=== PATIENT | female | born 1950 | race Caucasian/White ===

== ENCOUNTER → 2018-10-28 | Outpatient (CLI) | payer MEDICARE, OTHER | END | disposition home or self-care (01) | LOC: RAH 12:53 | PROVIDERS: ATTEND Family Medicine | DX: N60.01 Solitary cyst of right breast (principal); N60.02 Solitary cyst of left breast; Z80.3 Family history of malignant neoplasm of breast | CPT/HCPCS: 76641; 77066 ==

== ENCOUNTER → 2019-08-03 | Outpatient (CLI) | payer OTHER ==
[~2019-08-03] MED LIST: ADV250 IH; ASPI81TA40 PO; ATOR20TA PO; MAGN250T10 PO; METF-444 PO; METO100T7 PO; PANT40TA PO; POTASSIUM PO; SERT50TA12 PO; TELM80TA2 PO; TERB250T51 PO; VIT-12 PO
== END | disposition home or self-care (01) ==
LOC: OIH 13:06
PROVIDERS: ATTEND Internal Medicine Cardiovascular Disease
DX: Z13.6 Encounter for screening for cardiovascular disorders (principal)
CPT/HCPCS: 75571

== ENCOUNTER → 2019-08-05 | Outpatient (CLI) | payer MEDICARE, OTHER | END | disposition home or self-care (01) | LOC: SHCH 11:02 | PROVIDERS: ATTEND Internal Medicine Cardiovascular Disease | DX: I11.9 Hypertensive heart disease without heart failure (principal); I08.0 Rheumatic disorders of both mitral and aortic valves | CPT/HCPCS: 93306 ==

== ENCOUNTER 2019-08-27 08:28 | Day surgery (SDC) | payer MEDICARE ==
[2019-08-25 15:59] VITALS: BP 208/83
[2019-08-25 16:02] LABS: BASOPHILS % (AUTO) 0.4 % (0.0-5.0); EOSINOPHILS % (AUTO) 3.6 % (0.0-8.0); HEMATOCRIT 32.6 % (36-48); LYMPHOCYTES % (AUTO) 25.7 % (21.0-51.0); MEAN CORPUSCULAR HEMOGLOBIN 24.3 pg (27.0-33.0); MEAN CORPUSCULAR HGB CONC 31.7 g/dL (32.0-36.0); MEAN CORPUSCULAR VOLUME 76.6 fL (79-99); MONOCYTES % (AUTO) 8.8 % (3.0-13.0); NEUTROPHILS % (AUTO) 61.5 % (40.0-77.0); PLATELET COUNT (AUTO) 343 K/uL (130-400); RED BLOOD CELL COUNT(AUTO) 4.25 MIL/uL (4.00-5.50); RED CELL DISTRIBUTION WIDTH 17.5 % (11.0-15.5); WHITE BLOOD COUNT (AUTO) 8.9 K/uL (4.8-10.8)
[2019-08-25 16:04] LABS: APPEARANCE,URINE Clear (CLEAR); BILIRUBIN,URINE Negative (NEGATIVE); COLOR,URINE Yellow (YELLOW); GLUCOSE, URINE (UA) Negative (NEGATIVE); KETONES,URINE Negative (NEGATIVE); LEUKOCYTE ESTERASE ,URINE Negative (NEGATIVE); NITRATE,URINE Negative (NEGATIVE); OCCULT BLOOD,URINE Negative (NEGATIVE); PROTEIN,URINE Negative (NEGATIVE); UROBILINOGEN,URINE 0.2 mg/dL (0.2-1.0)
[2019-08-25 16:15] LABS: CREATININE 0.8 mg/dL (0.5-1.5); POTASSIUM 4.5 mmol/L (3.5-5.1)
[2019-08-25 16:17] LABS: INR 0.95 (0.85-1.15); PARTIAL THROMBOPLASTIN TIME 25.7 SEC (26.3-35.5)
[2019-08-25 16:43] VITALS: BP 160/80
--- NOTE | 2019-08-26 11:39 | NUR ---
labs abnormal h&h reported to [facility],no further orders given. ok to proceed with [facility]
[~2019-08-27] VITALS: Ht 160 cm; Wt 127.2 kg
[2019-08-27] VITALS (9 sets, daily range): BP systolic 133–154; BP diastolic 53–68
[~2019-08-27 08:28] MED LIST changes: +SODIUM CHLORIDE 0.9% 1000ML 1,000 ML IV SCH
--- NOTE | 2019-08-27 11:50 | NUR ---
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 family at bedside
[2019-08-27] MEDS ORDERED: MIDAZOLAM HCL 1 MG/ML 2ML VIAL ONE ×2 (12:01→12:43)
[2019-08-27] MEDS ORDERED: MEPERIDINE-PF 25 MG/ML SYG ONE ×2 (12:01→12:43)
[2019-08-27] MEDS ORDERED: IOHEXOL 350 MG/ML 100ML INFUS..BTL IV ONE (12:01)
[2019-08-27] MEDS ORDERED: NITROGLYCERIN 5 MG/ML 10 ML VIAL IV ONE (12:01)
[2019-08-27] MEDS ORDERED: VERAPAMIL HCL 2.5 MG/ML VIAL ONE (12:01)
[2019-08-27] MEDS ORDERED: IOHEXOL-350 50ML VIAL IV ONE (12:01)
[2019-08-27] MEDS ORDERED: HEPARIN SODIUM 1000UNIT/ML 10ML VIAL ONE (12:01)
[2019-08-27] MEDS ORDERED: LIDOCAINE HCL 2% 20ML ONE (12:02)
[2019-08-27] MEDS ORDERED: SODIUM BICARB 50MEQ 50ML VIAL ONE (12:05)
[2019-08-27] MEDS ORDERED: SODIUM CHLORIDE 0.9% 1000ML 1,000 ML IV SCH (13:18)
--- NOTE | 2019-08-27 13:40 | NUR ---
POST RECEIVED PT FROM [facility], S/P [facility] , RIGHT RADIAL T BAND IN PLACE WITH 18ML OF AIR PER REPORT. NO BLEEDING OR HEMATOMA TO SITE, VS STABLE. PLAN OF CARE DISCUSS WITH PT/ SPOUSE. CALL LIGHT WITHIN REACH
--- NOTE | 2019-08-27 14:05 | NUR ---
TBAND 18 ML TOTAL - 2ML OF AIR REMOVED FORM RIGHT RADIAL TBAND. NO BLEEDING NOTED PT TAMANNA WELL. 16 ML REMAIN
--- NOTE | 2019-08-27 14:25 | NUR ---
TBAND 16 ML TOTAL - 2ML OF AIR REMOVED FROM RIGHT RADIAL T BAND, NO BLEEDING OR HEMATOMA NOTED , PT TAMANNA WELL. 14 ML OF AIR REMAIN
--- NOTE | 2019-08-27 14:40 | NUR ---
TBAND 14 ML TOTAL - 2ML OF AIR REMOVED TO RIGHT RADIAL T BAND, , NO BLEEDING OR HEMATOMA TO SITE. PT TAMANNA WELL. 12 ML REMAIN
--- NOTE | 2019-08-27 15:10 | NUR ---
TBAND 12ML TOTAL , REMOVED 2 ML OF AIR FORM T BAND TO RIGHT RADIAL, NO BLEEDING OR HEMATOMA TO SITE. 10 ML AIR REMAIN,
--- NOTE | 2019-08-27 15:30 | NUR ---
TBAND 8 ML TOTAL , REMOVED 2ML OF AIR TO RIGHT TBAND 6 ML REMAINED Addendum: 08/27/19 at 1639 by ОЛЕГ CHRISTIE RN T BAND 10ML , REMOVED 2 ML OF AIR FROM T BAND, 8 ML REMAIN
--- NOTE | 2019-08-27 15:45 | NUR ---
TBAND TOTAL 8ML , REMOVED 2 ML TO TBAND RIGHT WRIST , REMAIN 6 ML,NO BLEEDING OR HEMATOMA TO SITE.
--- NOTE | 2019-08-27 16:00 | NUR ---
TBAND 6 ML, REMOVE 2 ML OF AIR FROM T BAND, NO BLEEDING OR HEMATOMA , 4 ML REMAIN
--- NOTE | 2019-08-27 16:15 | NUR ---
T BAND TOTAL 4 ML, REMOVE 2 ML OF AIR FROM T BAND, NO BLEEDING NOTED. 2 ML REMAIN
--- NOTE | 2019-08-27 16:30 | NUR ---
TBAND TOTAL 2ML , REMOVE 2 ML OF AIR FROM T BAND, ALL AIR REMOVED,NO BLEEDING OR HEMATOMA TO RIGHT RADIAL PUNTURE SITE. PT TAMANNA WELL. T BAND REMOVED AFTER AND STERILE DRESSING APPLIED.
--- NOTE | 2019-08-27 16:50 | NUR ---
DC PT DC HOME VIA WC,NO DISTRESS NOTED. PT DENIED ANY PAIN OR DISCOMFORTS. PT ACCOMPANIED BY SPOUSE, RIGHT WRIST DRESSING DRY AND INTACT, NO BLEEDING OR HEMATOMA NOTED. DC INSTRUCTIONS REINFORCED AGAIN TO CONTINUE HOME MEDS , TO HOLD METFORMIN FOR 1 DAY POST PROCEDURE. AND CONTINUE REST OF HOME MEDS, TO F/ U WITH DR. Nitin RAMON
== END 2019-08-27 16:50 | disposition home or self-care (01) ==
LOC: DAH 08:28
PROVIDERS: ATTEND Internal Medicine Cardiovascular Disease
DX: R93.1 Abnormal findings on diagnostic imaging of heart and coronary circulation (principal); I25.118 Atherosclerotic heart disease of native coronary artery with other forms of angina pectoris; I10 Essential (primary) hypertension; E78.5 Hyperlipidemia, unspecified; E11.9 Type 2 diabetes mellitus without complications; J45.909 Unspecified asthma, uncomplicated; G43.909 Migraine, unspecified, not intractable, without status migrainosus; Z79.84 Long term (current) use of oral hypoglycemic drugs; Z91.048 Other nonmedicinal substance allergy status; Z79.899 Other long term (current) drug therapy; Z79.82 Long term (current) use of aspirin; Z87.891 Personal history of nicotine dependence; Z72.89 Other problems related to lifestyle; Z98.890 Other specified postprocedural states; Z90.710 Acquired absence of both cervix and uterus; Z79.01 Long term (current) use of anticoagulants
CPT/HCPCS: 36415; 71045; 80048; 81003; 82948 ×2; 85025; 85610; 85730; 93005; 93458; A4215; A4216; A4221; A4222; A4223 ×3; A4606; A4663; C1769; C1894; J1644 ×2; J2175 ×2; J2250 ×2; J3490 ×4; J7030; Q9965; Q9967 ×2; 99156; 99157

== ENCOUNTER → 2020-05-10 | Outpatient (CLI) | payer MEDICARE ==
[~2020-05-10] MED LIST changes: -SODIUM CHLORIDE 0.9% 1000ML 1,000 ML IV SCH
== END | disposition home or self-care (01) ==
LOC: RAH 08:52
PROVIDERS: ATTEND Family Medicine
DX: N63.20 Unspecified lump in the left breast, unspecified quadrant (principal); R92.1 Mammographic calcification found on diagnostic imaging of breast; Z85.3 Personal history of malignant neoplasm of breast; N60.09 Solitary cyst of unspecified breast
CPT/HCPCS: 77066

== ENCOUNTER → 2022-11-16 | Outpatient (CLI) | payer MEDICARE ==
[~2022-11-16] MED LIST changes: +SERT-439 PO; -SERT50TA12 PO; -TERB250T51 PO; +TERB250T89 PO
== END | disposition home or self-care (01) ==
LOC: RAH 09:57
PROVIDERS: ATTEND Family Medicine
DX: R92.8 Other abnormal and inconclusive findings on diagnostic imaging of breast (principal); N60.29 Fibroadenosis of unspecified breast
CPT/HCPCS: 77066

== ENCOUNTER → 2023-03-13 | Outpatient (CLI) | payer MEDICARE | END | disposition home or self-care (01) | LOC: RAH 12:05 | PROVIDERS: ATTEND Family Medicine | DX: R05.3 Chronic cough (principal); R93.89 Abnormal findings on diagnostic imaging of other specified body structures; M47.815 Spondylosis without myelopathy or radiculopathy, thoracolumbar region | CPT/HCPCS: 71250 ==

== ENCOUNTER 2023-07-26 06:00 | Day surgery (SDC) | payer MEDICARE ==
[2023-07-24 10:26] VITALS: BP 149/75; PULSE 70; RESP 16
[2023-07-26] VITALS (18 sets, daily range): BP systolic 129–181; BP diastolic 61–99; PULSE 62–80; RESP 12–20
[~2023-07-26] VITALS: Ht 157.5 cm; Wt 120.5 kg
[~2023-07-26 06:00] MED LIST changes: +ACET-3573 PO; -ADV250 IH; +BIOT5000 PO; +FLUT1BLS3 IH; +HYDR12.54 PO; -MAGN250T10 PO; +MAGN400C PO; -TERB250T89 PO; +VITA0.4T20 PO; +[UNRECOGNIZED DRUG - REMARK] PO
[2023-07-26] MEDS ORDERED: FENTANYL CITRATE PF 50 MCG/1 ML 5ML AMP IV ONE ×2 (06:38→06:54)
[2023-07-26] MEDS ORDERED: CEFAZOLIN SODIUM 1 GM VIAL ONE (06:39)
[2023-07-26] MEDS ORDERED: CEFAZOLIN SODIUM 2 GM VIAL ONE (06:40)
[2023-07-26] MEDS ORDERED: 0.9%NACL 1000ML 1,000 ML IV ONE (06:40)
[2023-07-26] MEDS ORDERED: SUCCINYLCHOLINE CHLORIDE 20 MG/ML 10 ML VIAL ONE (07:08)
[2023-07-26] MEDS ORDERED: LIDOCAINE PF 100MG/5ML (2%) SYRINGE 5ML ONE (07:08)
[2023-07-26] MEDS ORDERED: DEXAMETHASONE SOD PHOSPHATE 10MG/ML 1ML VIAL ONE (07:09)
[2023-07-26] MEDS ORDERED: GLYCOPYRROLATE 1 MG/5 ML SYRINGE ONE (07:09)
[2023-07-26] MEDS ORDERED: PROPOFOL 10 MG/ML 20ML VIAL IV ONE (07:09)
[2023-07-26] MEDS ORDERED: NEOSTIGMINE 5MG/5ML SYR IV ONE (07:10)
[2023-07-26] MEDS ORDERED: ONDANSETRON 4MG INJ ONE (07:10)
[2023-07-26] MEDS ORDERED: ROCURONIUM 10MG/1ML SYR 10 MG/ML ML ONE (07:10)
[2023-07-26] MEDS ORDERED: LIDOCAINE HCL-MPF 0.5% 50ML VIAL IJ ONE (07:13)
[2023-07-26] MEDS ORDERED: KETAMINE 50MG/ML SYRINGE 50 MG/ML DISP.SYRIN ONE (07:14)
[2023-07-26] MEDS ORDERED: MIDAZOLAM HCL 1 MG/ML 5ML VIAL ONE (07:14)
[2023-07-26] MEDS ORDERED: DEXMEDETOMIDINE HCL 200 MCG/2 ML VIAL IV ONE (07:14)
[2023-07-26] MEDS ORDERED: LIDOCAINE HCL-MPF 2% 5ML VIAL ONE (07:14)
[2023-07-26] MEDS ORDERED: PROPOFOL 1000 MG/100 ML 100 ML IV ONE (07:15)
[2023-07-26] MEDS ORDERED: FENTANYL CITRATE PF 50 MCG/1 ML 2ML VIAL ONE (07:34)
[2023-07-26] MEDS ORDERED: CEFAZOLIN SODIUM 2 GM VIAL IVPB ONE (07:48)
[2023-07-26] MEDS ORDERED: BUPIVACAINE/PF 0.5% 30ML VIAL IV ONE (07:52)
[2023-07-26] MEDS ORDERED: BUPIVACAINE/PF 0.5% 30ML VIAL ONE (08:00)
[2023-07-26] MEDS ORDERED: SUGAMMADEX SODIUM 200 MG/2 ML VIAL IV ONE (08:10)
[2023-07-26] MEDS ORDERED: ACET-2079 PO (09:15)
== END 2023-07-26 10:10 | disposition home or self-care (01) ==
LOC: DAH 06:00
PROVIDERS: ATTEND Student in an Organized Health Care Education/Training Program
DX: G56.01 Carpal tunnel syndrome, right upper limb (principal); I10 Essential (primary) hypertension; E11.9 Type 2 diabetes mellitus without complications; J45.909 Unspecified asthma, uncomplicated; E66.01 Morbid (severe) obesity due to excess calories; E78.5 Hyperlipidemia, unspecified; Z90.710 Acquired absence of both cervix and uterus; Z98.891 History of uterine scar from previous surgery; Z98.890 Other specified postprocedural states; Z96.653 Presence of artificial knee joint, bilateral; Z82.49 Family history of ischemic heart disease and other diseases of the circulatory system; Z87.891 Personal history of nicotine dependence; Z68.42 Body mass index [BMI] 45.0-49.9, adult; Z79.84 Long term (current) use of oral hypoglycemic drugs; Z79.01 Long term (current) use of anticoagulants; Z79.899 Other long term (current) drug therapy
CPT/HCPCS: 84134; 86140; 36415; 64721; 82948 ×2; A4663; J7120; J3010 ×3; J0690 ×3; J3490 ×7; J1100; J2710; J0330; J7030; J2001; J2250; J2704 ×2; J2405; A6223; A4649; A5120; A4215; A4223; A4222; A4221

== ENCOUNTER → 2024-03-25 | Outpatient (CLI) | payer MEDICARE ==
[~2024-03-25] MED LIST changes: +ACET-2079 PO; -ACET-3573 PO
== END | disposition home or self-care (01) ==
LOC: RAH 13:55
PROVIDERS: ATTEND Family Medicine
DX: N63.22 Unspecified lump in the left breast, upper inner quadrant (principal); R92.1 Mammographic calcification found on diagnostic imaging of breast; R92.333 Mammographic heterogeneous density, bilateral breasts; R92.0 Mammographic microcalcification found on diagnostic imaging of breast; Z85.3 Personal history of malignant neoplasm of breast; Z80.3 Family history of malignant neoplasm of breast
CPT/HCPCS: 77066